=== PATIENT | male | born 1970 | race Caucasian/White ===

== ENCOUNTER → 2017-12-01 | Outpatient (CLI) | payer BC ==
[2014-07-23 11:45] VITALS: BP 137/88
[~2017-12-01] VITALS: Ht 195.6 cm; Wt 120.0 kg
[2017-12-01 11:15] LABS: EOS # 0.2 (0.04-0.40); EOS % 2.8 % (0.0-4.0); HEMATOCRIT 48.3 % (42.0-52.0); HEMOGLOBIN 16.6 g/dL (13.5-18.0); LYMPH# 1.8 (1.50-4.00); MEAN CELL VOLUME 90 fl (78-100); MEAN CORPUSCULAR HEMOGLOBIN 31 pg (27-31); MEAN CORPUSCULAR HGB CONC 34 g/dL (33-37); MEAN PLATELET VOLUME 10.7 fl (7.4-10.4); MONO # 0.7 (0.20-0.80); NEU # 3.9 (1.40-6.50); PLATELET COUNT 231 K/mm3 (130-400); RED BLOOD COUNT 5.35 M/mm3 (4.20-5.60); WHITE BLOOD COUNT 6.5 K/mm3 (4.8-10.8)
[2017-12-01 11:23] LABS: ALBUMIN 4.4 g/dL (3.5-5.0); BUN/CREATININE RATIO 16.9 (6.0-26.0); CALCIUM 9.6 mg/dL (8.4-10.2); POTASSIUM 4.4 mmol/L (3.6-5.0); TOTAL BILIRUBIN 0.8 mg/dL (0.2-1.3); TOTAL PROTEIN 7.9 g/dL (6.3-8.2)
[2017-12-02 01:52] LABS: T3 TOTAL 113 ng/dL (87-178)
== END ==
LOC: AMSURD 10:51
PROVIDERS: Nurse Practitioner Family
DX: R00.0 Tachycardia, unspecified (principal); Z13.220 Encounter for screening for lipoid disorders

== ENCOUNTER → 2017-12-06 | Outpatient (CLI) | payer BC ==
[2014-07-23 11:45] VITALS: BP 137/88
== END ==
LOC: VAS 16:45 → RAD 17:00
DX: I08.3 Combined rheumatic disorders of mitral, aortic and tricuspid valves (principal); Z13.220 Encounter for screening for lipoid disorders; Z88.0 Allergy status to penicillin

== ENCOUNTER → 2017-12-23 | Outpatient (CLI) | payer BC ==
[2014-07-23 11:45] VITALS: BP 137/88
== END ==
LOC: RAD 10:00
DX: I35.1 Nonrheumatic aortic (valve) insufficiency (principal); Z90.49 Acquired absence of other specified parts of digestive tract
CPT/HCPCS: Q9967

== ENCOUNTER → 2020-02-14 | Outpatient (CLI) | payer BC ==
[2014-07-23 11:45] VITALS: BP 137/88
[2020-02-14 10:39] LABS: EOS # 0.3 (0.04-0.40); EOS % 4.1 % (0.0-4.0); HEMATOCRIT 46.2 % (42.0-52.0); HEMOGLOBIN 15.5 g/dL (13.5-18.0); LYMPH# 1.8 (1.50-4.00); MEAN CELL VOLUME 90 fl (78-100); MEAN CORPUSCULAR HEMOGLOBIN 30 pg (27-31); MEAN CORPUSCULAR HGB CONC 34 g/dL (33-37); MEAN PLATELET VOLUME 10.6 fl (7.4-10.4); MONO # 0.6 (0.20-0.80); NEU # 3.6 (1.40-6.50); PLATELET COUNT 214 K/mm3 (130-400); RED BLOOD COUNT 5.11 M/mm3 (4.20-5.60); RED CELL DISTRIBUTION WIDTH 13.2 % (11.5-14.5); WHITE BLOOD COUNT 6.3 K/mm3 (4.8-10.8)
[2020-02-14 10:49] LABS: ALBUMIN 4.4 g/dL (3.5-5.0); POTASSIUM 4.4 mmol/L (3.5-5.1)
[2020-02-14 10:50] LABS: CALCIUM 9.5 mg/dL (8.3-10.5)
[2020-02-14 10:52] LABS: TOTAL PROTEIN 7.4 g/dL (6.4-8.3)
== END ==
LOC: RAD 10:14
PROVIDERS: Family Medicine
DX: M77.9 Enthesopathy, unspecified (principal); M72.2 Plantar fascial fibromatosis

== ENCOUNTER → 2020-02-28 | Outpatient (CLI) | payer BC ==
[2014-07-23 11:45] VITALS: BP 137/88
== END ==
LOC: RAD 09:12
DX: M77.32 Calcaneal spur, left foot (principal)

== ENCOUNTER 2020-03-12 16:00 | Outpatient (RCR) | payer BC ==
[2014-07-23 11:45] VITALS: BP 137/88
== END 2020-03-12 16:30 | disposition home or self-care (01) ==
LOC: PT 16:00
DX: M72.2 Plantar fascial fibromatosis (principal)

== ENCOUNTER 2022-04-24 00:58 | Emergency (ER) | payer BC ==
[~2022-04-24] VITALS: Ht 195.6 cm; Wt 127.0 kg
[2022-04-24 03:05] LABS: BASO # 0.04 K/mm3 (0.02-0.10); EOS % 1.3 % (0.0-4.0); HEMOGLOBIN 15.3 g/dL (13.5-18.0); LYMPH# 1.32 K/mm3 (1.50-4.00); MEAN CELL VOLUME 92 fl (78-100); MEAN CORPUSCULAR HEMOGLOBIN 31 pg (27-31); MEAN CORPUSCULAR HGB CONC 34 g/dL (33-37); MEAN PLATELET VOLUME 11.2 fl (7.4-10.4); MONO # 0.58 K/mm3 (0.20-0.80); NEU # 5.36 K/mm3 (1.40-6.50); PLATELET COUNT 226 K/mm3 (130-400); RED CELL DISTRIBUTION WIDTH 12.4 % (11.5-14.5); WHITE BLOOD COUNT 7.4 K/mm3 (4.8-10.8)
[2022-04-24 03:12] LABS: ALBUMIN 4.4 g/dL (3.5-5.0); POTASSIUM 4.2 mmol/L (3.5-5.1)
[2022-04-24 03:13] LABS: CALCIUM 9.6 mg/dL (8.3-10.5)
[2022-04-24 03:14] LABS: TOTAL PROTEIN 7.8 g/dL (6.4-8.3)
[2022-04-24 03:16] LABS: TOTAL BILIRUBIN 1.1 mg/dL (0.2-1.2)
[2022-04-24 03:24] LABS: URINE APPEARANCE HAZY; URINE COLOR DK YELLOW
[2022-04-24 03:25] LABS: URINE BILIRUBIN NEGATIVE (NEGATIVE); URINE BLOOD 250 ery/uL (NEGATIVE); URINE GLUCOSE NEGATIVE (NEGATIVE); URINE KETONE 1+ (NEGATIVE); URINE LEUKOCYTE ESTERASE NEGATIVE (NEGATIVE); URINE NITRATE NEGATIVE (NEGATIVE); URINE PROTEIN(semi-quant) NEGATIVE (NEGATIVE); URINE UROBILINOGEN NORMAL (NORMAL); URINE WBC 0-1 /hpf (0-3)
[2022-04-24 03:26] LABS: URINE MUCUS PRESENT (NOT PRESENT)
[2022-04-24] MEDS ORDERED: ZOFRAN ODT4 MG PO (03:42)
[2022-04-24] MEDS ORDERED: PERCOCET 325 MG1 TA5 PO (03:42)
[2022-04-24] MEDS ORDERED: FLOMAX0.4 MG PO (03:42)
[2022-04-24 03:55] VITALS: BP 142/89
== END 2022-04-24 03:55 | disposition home or self-care (01) ==
LOC: ED 00:58
PROVIDERS: Family Medicine
DX: N20.0 Calculus of kidney (principal); E66.9 Obesity, unspecified; Z87.19 Personal history of other diseases of the digestive system
CPT/HCPCS: J1885; J2270

== ENCOUNTER → 2022-12-09 | Outpatient (CLI) | payer BC ==
[~2022-12-09] MED LIST: FLOMAX0.4 MG PO; PERCOCET 325 MG1 TA5 PO; ZOFRAN ODT4 MG PO
== END ==
LOC: RAD 10:17
DX: J30.2 Other seasonal allergic rhinitis (principal)